=== PATIENT | male | born 1950 | race Two or more races ===

== ENCOUNTER 2021-12-08 10:29 | Outpatient (REF) | payer MEDICARE, OTHER, SELFPAY ==
--- NOTE | ~2021-12-08 | XR_ITS ---
EXAMINATION: XR KNEE, BILATERAL CLINICAL INFORMATION: Pain. COMPARISON: None TECHNIQUE: 4 views each knee. FINDINGS: RIGHT KNEE: There is loss of tricompartment joint space with no bony erosive changes or loose bodies. There is genu varum deformity. There is periarticular spurring throughout the tricompartment. No visible acute fracture seen. There is a large osteophyte or loose body seen in the suprapatellar bursa. There is mild joint effusion. LEFT KNEE: There is severe loss of medial and moderate loss of lateral and patellofemoral compartments with mild spurring and mild joint effusion. There is an anterior osteophyte or loose body along the distal femur in the patellofemoral compartment. No lytic or sclerotic process seen. The soft tissues are normal. XR/XR knee RT 4V IMPRESSION: Degenerative arthritic changes throughout both knees, slightly worse in the medial compartments bilaterally. There is periarticular spurring. There is a large osteophyte or loose body anterior to the distal femur in the patellofemoral compartments bilaterally. There is bilateral joint effusion, as well. Genu varus deformity right knee.
--- NOTE | ~2021-12-08 | XR_ITS ---
EXAMINATION: XR KNEE, BILATERAL CLINICAL INFORMATION: Pain. COMPARISON: None TECHNIQUE: 4 views each knee. FINDINGS: RIGHT KNEE: There is loss of tricompartment joint space with no bony erosive changes or loose bodies. There is genu varum deformity. There is periarticular spurring throughout the tricompartment. No visible acute fracture seen. There is a large osteophyte or loose body seen in the suprapatellar bursa. There is mild joint effusion. LEFT KNEE: There is severe loss of medial and moderate loss of lateral and patellofemoral compartments with mild spurring and mild joint effusion. There is an anterior osteophyte or loose body along the distal femur in the patellofemoral compartment. No lytic or sclerotic process seen. The soft tissues are normal. XR/XR knee LT 4V IMPRESSION: Degenerative arthritic changes throughout both knees, slightly worse in the medial compartments bilaterally. There is periarticular spurring. There is a large osteophyte or loose body anterior to the distal femur in the patellofemoral compartments bilaterally. There is bilateral joint effusion, as well. Genu varus deformity right knee.
== END 2021-12-08 10:30 | disposition home or self-care (01) ==
LOC: HO.XRAY 10:29
PROVIDERS: PCP Internal Medicine; Visit Provider Internal Medicine
DX: M25.561 Pain in right knee (principal); M25.562 Pain in left knee
CPT/HCPCS: 73564

== ENCOUNTER 2022-03-11 07:55 | Outpatient (REF) | payer MEDICARE, OTHER, SELFPAY ==
--- NOTE | ~2022-03-11 | XR_ITS ---
EXAMINATION: XR KNEE AP STANDING CLINICAL INFORMATION: Pain COMPARISON: None TECHNIQUE: AP bilateral standing view of the knees was obtained. FINDINGS: There is bilateral varus angulation. There is severe arthritis at the bilateral medial femoral tibial joints. There is evidence of atherosclerotic disease. 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
== END 2022-03-11 07:56 | disposition home or self-care (01) ==
LOC: HO.HOSX 07:55
PROVIDERS: Visit Provider Physician Assistant
DX: M17.0 Bilateral primary osteoarthritis of knee (principal)
CPT/HCPCS: 20610; 73565; 99202; J1020

== ENCOUNTER 2022-07-14 13:04 | Outpatient (REF) | payer MEDICARE, SELFPAY ==
--- NOTE | ~2022-07-14 | XR_ITS ---
EXAMINATION: XR CHEST CLINICAL INFORMATION: Cough, chest pain COMPARISON: None TECHNIQUE: 2 views of the chest were obtained. FINDINGS: There are low lung volumes. There is no airspace consolidation or groundglass opacity or effusion. Probable disc atelectasis anterior chest on lateral view possibly superior lingula. The costophrenic sulci are well-defined. The vascularity is normal. Heart size is within normal limits. The hilar and mediastinal contours are unremarkable. There are multilevel degenerative changes spine. XR/XR chest 2V IMPRESSION: 1. Low lung volumes. Probable disc atelectasis anterior chest possibly superior lingula. 2. No airspace consolidation or effusion.
== END 2022-07-14 13:05 | disposition home or self-care (01) ==
LOC: HO.XRAY 13:04
PROVIDERS: PCP Internal Medicine; Visit Provider Internal Medicine
DX: R05.2 Subacute cough (principal)
CPT/HCPCS: 71046

== ENCOUNTER → 2022-07-23 09:47 | Outpatient (BNVA) | payer MEDICARE, SELFPAY | PROVIDERS: PCP Internal Medicine; Visit Provider Physician Assistant | DX: M17.12 Unilateral primary osteoarthritis, left knee (principal) | CPT/HCPCS: 20610; 99212; J1020 ==